=== PATIENT | female | born 1960 | race Caucasian/White ===

== ENCOUNTER 2016-04-30 | Emergency (ER) | payer OTHER ==
[~2016-04-30] MED LIST: IRON325 M1 PO; LEVOCETIRIZINE D5 MG PO; LIPITOR TAB 1010 MG PO; NEURONTIN 300300 MG PO; NORCO 5-325 TA1 EACH PO; OMEPRAZOLE20 MG PO; TOPROL XL 25 MG25 MG PO; VITAMIN B-121000 MCG PO; VITAMIN C500 M1 PO; VITAMIN D50000 UNIT PO
== END 2016-04-30 16:21 | disposition left against medical advice (07) ==
DX: Z53.21 Procedure and treatment not carried out due to patient leaving prior to being seen by health care provider (principal)

== ENCOUNTER → 2020-03-10 | Outpatient (CLI) | payer BC | LOC: MAMO 03-09 07:40 | DX: Z12.31 Encounter for screening mammogram for malignant neoplasm of breast (principal) | CPT/HCPCS: 77063; 77067 ==

== ENCOUNTER 2021-02-01 11:47 | Emergency (ER) | payer BC ==
[2021-02-01 12:48] LABS: RED BLOOD COUNT 5.16 M/UL (4.00-5.10); WHITE BLOOD COUNT 15.1 K/UL (4.5-11.0)
[2021-02-01 13:07] LABS: BUN/CREATININE RATIO 23 (0-10)
[2021-02-01] MEDS ORDERED: ZOFRAN4 MG PO (15:23)
== END 2021-02-01 15:49 | disposition home or self-care (01) ==
LOC: ER1 11:47
PROVIDERS: Physician Assistant
DX: K52.9 Noninfective gastroenteritis and colitis, unspecified (principal); K21.9 Gastro-esophageal reflux disease without esophagitis; E78.5 Hyperlipidemia, unspecified; I10 Essential (primary) hypertension; Z90.710 Acquired absence of both cervix and uterus
CPT/HCPCS: 80053; 81001; 82150; 83690; 85025; 96374; 96375; 99284; J2270; J2405; Q9967

== ENCOUNTER → 2021-03-09 | Outpatient (CLI) | payer BC ==
[~2021-03-09] MED LIST changes: +ZOFRAN4 MG PO
== END ==
LOC: MAMO 08:28
DX: Z12.31 Encounter for screening mammogram for malignant neoplasm of breast (principal)
CPT/HCPCS: 77063; 77067